=== PATIENT | male | born 1960 | race Caucasian/White ===

== ENCOUNTER 2024-04-12 10:56 | Inpatient (IN) | payer MEDICARE, MEDICAID, SELFPAY ==
[2024-04-12 11:04] VITALS: BP 185/80; PULSE 89; RESP 16; TEMP 36.8; O2SAT 96; BMI 25.9
--- NOTE | 2024-04-12 11:04 | ED.C_ITS ---
Documented by User: [email or web address] Palacios 04/12/24 12:16 HPI - Psych 2 General: Chief Complaint: Psychiatric Symptoms Stated Complaint: 96 Time Seen by Provider: 04/12/24 11:04 Source: patient Mode of arrival: EMS Limitations: no limitations History of Present Illness: Patient is a 63-year-old male presents to ED today on a 96-hour hold. According to hold paperwork patient has been sending his friend text messages stating that he was going to go kill himself that he is going to end it all or going to go be with Terrence . His friend to file the affidavit states he has been threatening bodily harm and when he went to the patient's residence he found a loaded gun cocked and lying by his feet. According to the affidavit patient has made statements that he feels like nobody cares. According to the friend, when he told to the patient he was not going to give his gun back, the patient then responded that he would use a knife to end it all. Patient upon arrival is denying all claims and states I do not know what you are talking about . MD complaint: suicidal ideation Associated symptoms: Deny auditory hallucinations, visual hallucinations, depression, homicidal ideation or suicidal ideation Treatments prior to arrival: placed on mental health hold If self harm: admits thoughts of self harm, has plan and has acted on plan Review of Systems 2 Const: Denies: fever(s) or chills Card: Denies: chest pain, palpitations, lightheadedness or syncope Resp: Denies: dyspnea GI: Denies: abdominal pain, nausea, vomiting or diarrhea Skin/Breast: Denies: rash Neuro: Denies: headache(s) Psych: Denies: anxiety, depression, visual hallucinations, auditory hallucinations, suicidal ideation or homicidal ideation Physical Exam 2 Const: COMMON NORMALS: no acute distress, average body habitus, patient oriented x3, no limitations, healthy appearing, alert and well nourished G ENERAL APPEARANCE: cooperative ORIENTATION/CONSCIOUSNESS: Yes oriented to person, Yes oriented to place and Yes oriented to time Resp: COMMON NORMALS: normal respiratory effort and clear to auscultation bilaterally AUSCULTATION: clear to auscultation bilaterally Cardio: COMMON NORMALS: regular rate and regular rhythm RATE: regular rate RHYTHM: regular rhythm Neuro: COMMON NORMALS: patient oriented x3 SENSORIUM/ORIENTATION: Yes alert, Yes oriented to person, Yes oriented to place and Yes oriented to time Psych: COMMON NORMALS: mental status grossly normal, activity/motor behavior normal, denies hallucinations, denies homicidal ideation and denies suicidal ideation APPEARANCE: Yes grossly normal ATTITUDE: Yes calm A CTIVITY/MOTOR BEHAVIOR: Yes appropriate eye contact and No psychomotor agitation SPEECH: Yes delayed MOOD & AFFECT: Yes euthymic mood MEMORY/COGNITION: Yes memory grossly intact and Yes cognition grossly intact INSIGHT: Fair insight present (Psych) JUDGEMENT: Fair judgement present (Psych) Course 2 Consultations: Consultation #1: Dr. Adorno-accepts to NPU Vital Signs: Vital signs: Vital Signs Temperature 98.3 F 04/12/24 11:04 Pulse Rate 89 04/12/24 14:58 Respiratory Rate 16 04/12/24 14:58 Blood Pressure 185/80 04/12/24 14:58 Pulse Oximetry 96 04/12/24 14:58 Oxygen Delivery Me thod Room Air 04/12/24 15:04 [facility] - Psych Medical Decision Making Patient will be admitted to NPU to Dr. Adorno on a 96-hour hold for treatment/evaluation of suicidal ideations. Lab Data 04/12/24 11:16 04/12/24 11:16 Laboratory Results WBC 9.38 10^3/uL (3.29-11.43) 04/12/24 11:16 RBC 4.48 10^6/uL (3.85-5.65) 04/12/24 11:16 Hgb 14.10 g/dL (11.27-16.99) 04/12/24 11:16 Hct 43.5 % (37-53) 04/12/24 11:16 MCV 97.1 fl (82-101) 04/12/24 11:16 MCH 31.5 pg (27-33) 04/12/24 11:16 MCHC 32.4 g/dL (30-55) 04/12/24 11:16 RDW 13.4 % (12.1-15.1) 04/12/24 11:16 Plt Count 270 10^3/cmm (157-399) 04/12/24 11:16 MPV 9.6 fL (7.4-10.4) 04/12/24 11:16 Neut % (Auto) 71.3 % 04/12/24 11:16 Lymph % (Auto) 12.5 % 04/12/24 11:16 Mckean % (Auto) 14.2 % 04/12/24 11:16 Eos % (Auto) 1.2 % 04/12/24 11:16 Baso % (Auto) 0.4 % 04/12/24 11:16 Neut # (Auto) 6.69 10^3/uL (1.8-7.7) 04/12/24 11:16 Lymph # (Auto) 1.2 10^3/uL (0.8-4.8) 04/12/24 11:16 Mckean # (Auto) 1.3 10^3/uL (0.2-0.9) H 04/12/24 11:16 Eos # (Auto) 0.1 10^3/uL (0.0-0.8) 04/12/24 11:16 Baso # (Auto) 0.0 10^3/uL (0.0-0.1) 04/12/24 11:16 Nucleated RBC % (auto) 0 % 04/12/24 11:16 Nucleated RBCs # 0.0 /100WBC 04/12/24 11:16 Sodium 136 mmol/L (136-145) 04/12/24 11:16 Potassium 3.7 mmol/L (3.5-5.1) 04/12/24 11:16 Chloride 100 mmol/L (98-107) 04/12/24 11:16 Carbon Dioxide 23 mmol/L (22-29) 04/12/24 11:16 Anion Gap 16.7 (5-19) 04/12/24 11:16 BUN 13 mg/dL (8-23) 04/12/24 11:16 Creatinine 0.9 mg/dL (0.7-1.2) 04/12/24 11:16 GFR Calculation 85.5 mL/min (90-130) L 04/12/24 11:16 Glucose 101 mg/dL (65-115) 04/12/24 11:16 Calculated Osmolality 282 mOsm/kg (285-295) L 04/12/24 11:16 Calcium 9.0 mg/dL (8.5-10.5) 04/12/24 11:16 Total Bilirubin 0.4 mg/dL (0.15-1.2) 04/12/24 11:16 AST 29 U/L (0-40) 04/12/24 11:16 ALT 18 U/L (0-41) 04/12/24 11:16 Alkaline Phosphatase 79 U/L (40-130) 04/12/24 11:16 Total Protein 7.7 g/dL (6.6-8.7) 04/12/24 11:16 Albumin 4.0 g/dL (3.5-5.2) 04/12/24 11:16 Globulin 3.7 g/dL (1.3-4.6) 04/12/24 11:16 Salicylates 0.6 mg/dL (3-10) L 04/12/24 11:16 Urine Opiates Screen Negative ng/mL (Negative) 04/12/24 11:08 Acetaminophen < 5.0 ug/mL (10-30) L 04/12/24 11:16 Ur Barbiturates Screen Negative ng/mL (Negative) 04/12/24 11:08 Ur Phencyclidine Scrn Negative ng/mL (Negative) 04/12/24 11:08 Ur Amphetamines Screen Negative ng/mL (Negative) 04/12/24 11:08 U Benzodiazepines Scrn Negative ng/mL (Negative) 04/12/24 11:08 Urine Cocaine Screen Negative ng/mL (Negative) 04/12/24 11:08 U Marijuana (THC) Screen Negative ng/mL (Negative) 04/12/24 11:08 Ethyl Alcohol < 10 mg/dL (0-10) 04/12/24 11:16 No radiology studies performed this visit Discharge Plan Discharge Patient Disposition: Admitted As Inpatient Admit Provider: Morris Adorno Clinical Impression: Suicidal ideation Condition: Stable Coding Level of Care Code ED Admin Assistant for Chg Fwd Documented by User: Bryson Zavaleta DO 04/12/24 16:28 HPI - Psych 2 General: Chief Complaint: Psychiatric Symptoms Stated Complaint: 96 Time Seen by Provider: 04/12/24 11:04 Course 2 Vital Signs: Vital signs: Vital Signs Temperature 98.3 F 04/12/24 11:04 Pulse Rate 89 04/12/24 14:58 Respiratory Rate 16 04/12/24 14:58 Blood Pressure 185/80 04/12/24 14:58 Pulse Oximetry 96 04/12/24 14:58 Oxygen Delivery Me thod Room Air 04/12/24 15:04 MDM - Psych Medical Decision Making Patient will be admitted to NPU to Dr. Adorno on a 96-hour hold for treatment/evaluation of suicidal ideations. Chart reviewed and patient discussed with midlevel. Agree with assessment and plan. Lab Data 04/12/24 11:16 04/12/24 11:16 Laboratory Results WBC 9.38 10^3/uL (3.29-11.43) 04/12/24 11:16 RBC 4.48 10^6/uL (3.85-5.65) 04/12/24 11:16 Hgb 14.10 g/dL (11.27-16.99) 04/12/24 11:16 Hct 43.5 % (37-53) 04/12/24 11:16 MCV 97.1 fl (82-101) 04/12/24 11:16 MCH 31.5 pg (27-33) 04/12/24 11:16 MCHC 32.4 g/dL (30-55) 04/12/24 11:16 RDW 13.4 % (12.1-15.1) 04/12/24 11:16 Plt Count 270 10^3/cmm (157-399) 04/12/24 11:16 MPV 9.6 fL (7.4-10.4) 04/12/24 11:16 Neut % (Auto) 71.3 % 04/12/24 11:16 Lymph % (Auto) 12.5 % 04/12/24 11:16 Mckean % (Auto) 14.2 % 04/12/24 11:16 Eos % (Auto) 1.2 % 04/12/24 11:16 Baso % (Auto) 0.4 % 04/12/24 11:16 Neut # (Auto) 6.69 10^3/uL (1.8-7.7) 04/12/24 11:16 Lymph # (Auto) 1.2 10^3/uL (0.8-4.8) 04/12/24 11:16 Mckean # (Auto) 1.3 10^3/uL (0.2-0.9) H 04/12/24 11:16 Eos # (Auto) 0.1 10^3/uL (0.0-0.8) 04/12/24 11:16 Baso # (Auto) 0.0 10^3/uL (0.0-0.1) 04/12/24 11:16 Nucleated RBC % (auto) 0 % 04/12/24 11:16 Nucleated RBCs # 0.0 /100WBC 04/12/24 11:16 Sodium 136 mmol/L (136-145) 04/12/24 11:16 Potassium 3.7 mmol/L (3.5-5.1) 04/12/24 11:16 Chloride 100 mmol/L (98-107) 04/12/24 11:16 Carbon Dioxide 23 mmol/L (22-29) 04/12/24 11:16 Anion Gap 16.7 (5-19) 04/12/24 11:16 BUN 13 mg/dL (8-23) 04/12/24 11:16 Creatinine 0.9 mg/dL (0.7-1.2) 04/12/24 11:16 GFR Calculation 85.5 mL/min (90-130) L 04/12/24 11:16 Glucose 101 mg/dL (65-115) 04/12/24 11:16 Calculated Osmolality 282 mOsm/kg (285-295) L 04/12/24 11:16 Calcium 9.0 mg/dL (8.5-10.5) 04/12/24 11:16 Total Bilirubin 0.4 mg/dL (0.15-1.2) 04/12/24 11:16 AST 29 U/L (0-40) 04/12/24 11:16 ALT 18 U/L (0-41) 04/12/24 11:16 Alkaline Phosphatase 79 U/L (40-130) 04/12/24 11:16 Total Protein 7.7 g/dL (6.6-8.7) 04/12/24 11:16 Albumin 4.0 g/dL (3.5-5.2) 04/12/24 11:16 Globulin 3.7 g/dL (1.3-4.6) 04/12/24 11:16 Salicylates 0.6 mg/dL (3-10) L 04/12/24 11:16 Urine Opiates Screen Negative ng/mL (Negative) 04/12/24 11:08 Acetaminophen < 5.0 ug/mL (10-30) L 04/12/24 11:16 Ur Barbiturates Screen Negative ng/mL (Negative) 04/12/24 11:08 Ur Phencyclidine Scrn Negative ng/mL (Negative) 04/12/24 11:08 Ur Amphetamines Screen Negative ng/mL (Negative) 04/12/24 11:08 U Benzodiazepines Scrn Negative ng/mL (Negative) 04/12/24 11:08 Urine Cocaine Screen Negative ng/mL (Negative) 04/12/24 11:08 U Marijuana (THC) Screen Negative ng/mL (Negative) 04/12/24 11:08 Ethyl Alcohol < 10 mg/dL (0-10) 04/12/24 11:16 Discharge Plan Discharge Patient Disposition: Admitted As Inpatient Admit Provider: Morris Adorno Clinical Impression: Suicidal ideation Condition: Stable Coding Level of Care Code ED Admin Assistant for Aminah Lynn
[2024-04-12 11:21] VITALS: BP 185/80; PULSE 89; RESP 16; O2SAT 96
[2024-04-12 11:23] LABS: Basophils % 0.4 %; Eosinophils # 0.1 10^3/uL (0.0-0.8); Eosinophils % 1.2 %; Hematocrit 43.5 % (37-53); Lymphocytes # 1.2 10^3/uL (0.8-4.8); Lymphocytes % 12.5 %; Mean Corpuscular HGB Conc 32.4 g/dL (30-55); Mean Corpuscular Hemoglobin 31.5 pg (27-33); Mean Corpuscular Volume 97.1 fl (82-101); Mean Platelet Volume 9.6 fL (7.4-10.4); Monocytes # 1.3 10^3/uL (0.2-0.9); Monocytes % 14.2 %; Neutrophils # 6.69 10^3/uL (1.8-7.7); Neutrophils % 71.3 %; Nucleated Red Blood Cells % 0 %; Platelet Count 270 10^3/cmm (157-399); Red Blood Count 4.48 10^6/uL (3.85-5.65); Red Cell Distribution Width 13.4 % (12.1-15.1); White Blood Count 9.38 10^3/uL (3.29-11.43)
[2024-04-12 11:42] LABS: Amphetamines Screen Urine Negative (Negative); Barbiturates Screen Urine Negative (Negative); Benzodiazepines Screen Urine Negative (Negative); Cocaine Screen Urine Negative (Negative); Opiate Screen Urine Negative (Negative); PCP Screen Urine Negative (Negative); THC Screen Urine Negative (Negative)
--- NOTE | 2024-04-12 11:47 | PC.PHAR ---
PT STATES TOOK ALLERGY PILL TODAY. NO OTHER RESPONSE TO ANY OF MY QUESTIONS. USED DEEPTI DE ANDA FOR REFERENCE TO MEDICATIONS PT CURRENTLY SHOULD BE TAKING.
[2024-04-12 11:50] LABS: Alanine Aminotransferase 18 U/L (0-41); Alkaline Phosphatase 79 U/L (40-130); Anion Gap 16.7 (5-19); Aspartate Amino Transferase 29 U/L (0-40); Blood Urea Nitrogen 13 mg/dL (8-23); Carbon Dioxide 23 mmol/L (22-29); Chloride 100 mmol/L (98-107); Creatinine Clr Calc Pharmacy 83.9925; Globulin 3.7 g/dL (1.3-4.6); Glomerular Filtration Rate 85.5 mL/min (90-130); Glucose 101 mg/dL (65-115); Osmolality Calculated 282 mOsm/kg (285-295); Potassium 3.7 mmol/L (3.5-5.1); Salicylate 0.6 mg/dL (3-10); Sodium 136 mmol/L (136-145); Total Bilirubin 0.4 mg/dL (0.15-1.2); Total Protein 7.7 g/dL (6.6-8.7)
[2024-04-12 12:13] LABS: Acetaminophen < 5.0 ug/mL (10-30); Alcohol Level < 10 mg/dL (0-10)
--- NOTE | 2024-04-12 12:29 | PC.NURSE ---
PATIENT IS AGGRESSIVE WITH 1:1 SITTER. PATIENT STATES THAT HE DOESN'T LIKE HER BECAUSE SHE REMINDS ME OF MY EX-SISTER IN LAW. PATIENT CONTINUES TO USE VULGAR LANGUAGE AND MIDDLE FINGERS TO SITTER. NURSE EDUCATES PATIENT THAT 1:1 SITTER HAS A JOB THAT MUST BE DONE. PATIENT BACK TO BED.
--- NOTE | 2024-04-12 13:17 | PC.NURSE ---
96 hr rights reviewed with pt with assistance of [facility] security Hector officer @[id number]. Pt agitated at time of rights being served. He verbalized understandment of rights, but also verbalizes distaste for decision and with the PSA who is currently sitting with him. Pt states she reminds him of his ex sister in law, and continues to flip her off and yell at her. HS and Security spoke with patient and gave education on need to stay inside of room at this time. Patient copy left with patient. Patient continues to verbalize colorful names towards [facility] staff. Patient currently in ER 9. Patient copy left @bedside with the patient.
[2024-04-12 14:58] VITALS: BP 185/80; PULSE 89; RESP 16; O2SAT 96
[2024-04-12 15:04] VITALS: BP 112/75; PULSE 86; RESP 20; TEMP 36.4; O2SAT 99
--- NOTE | 2024-04-12 16:12 | PC.NURSE ---
counted pt christy infront of patient-christy count =$1906.00, christy placed in security christy folder,sealed with tape, pt, lina Bardales, this test fixture designer signed security christy folder after it was sealed. security christy folder given to Security [place] to take to security office safe until pt ready for discharge. orginal document placed in pt chart.
--- NOTE | 2024-04-12 16:43 | PC.ADMIT ---
[id number] Wilian Abdi Admission Note: The patient,Jerrod Yost,63 y/o, was given written information regarding hospital policies, unit procedures and contact persons. Patient's smoking status: . Vital Signs - 8 hr 04/12/24 11:04 04/12/24 11:21 04/12/24 14:58 Temperature 98.3 F Pulse Rate 89 89 89 Respiratory Rate 16 16 16 Blood Pressure 185/80 185/80 185/80 Pulse Oximetry 96 96 96 Oxygen Delivery Method Room Air Room Air 04/12/24 15:04 Temperature Pulse Rate Respiratory Rate Blood Pressure Pulse Oximetry Oxygen Delivery Method Room Air ADMITTED VIA WHEELCHAIR AND SECURITY AT 1505. PT IS ON A 96 HOUR HOLD THAT ENDS ON 04/18/24 AT 1218. PT IS ANXIOUS UPON ARRIVAL, MEDICATIONS OFFERED BUT DECLINES. PT STATES HE IS HERE DUE I DON'T REALLY REMEMBER. I MAYBE TEXTED MY FRIEND WHEN I WAS DRUNK THAT I WANTED TO KILL MYSELF. PT DENIES HI AND AVH AT THIS TIME. DENIES PAIN. PT REPORTS THAT HE DRINKS A FIFTH OF VODKA A WEEK AND HAS BEEN DRINKING SINCE AGE 13. PT REPORTS HE STOPPED SMOKING IN 2007 AND DOES HAVE COPD. PT DENIES ANY PSYCHIATRIC DIAGNOSES AT THIS TIME AND STATES HE TAKES NO PSYCHIATRIC MEDICATIONS AT THIS TIME. PT IS ALERT AND ORIENTED TIMES 4 AND CAN MAKE HIS NEEDS KNOWN. PT WAS DRESSED OUT AND SKIN ASSESSMENT COMPLETED AND REVEALS GENERALIZED TICK BITES TO LEGS AND ARMS. PT STATES HE GETS TICK BITES IN THE [place] AT HOME. PT WAS ORIENTATED TO NPU, RULES AND GUIDELINES. ALL QUESTIONS ANSWERED AND SUPPORT WAS VOICED. INSULATION ENGINEMAN ALERTED THIS RN THAT PT HAD MULTIPLE BILLS IN HIS WALLET. ALL MONEY WAS COUNTED WITH LEOBARDO PEDROZA AND YAZAN CASAS IN THE AMOUNT OF $1905.00. THIS RN CONTACTED SECURITY TO TAKE THE ENVELOPE OF MONEY AND TO KEEP IT IN THE SECURITY OFFICE. ALL MONEY WAS GIVEN TO JESSICA FROM SECURITY TO KEEP UNTIL THE PT DISCHARGES. PT SIGNED OFF ON MONEY AND WATCHED STAFF (LEOBARDO AND YAZAN) COUNT MONEY, PLACE AND SEAL IN ENVELOPE.
--- NOTE | 2024-04-12 17:04 | PC.NURSE ---
CALLED DR. TOVAR TO GET ORDERS TO START HOME MEDIATIONS. DR. TOVAR GAVE ORDERS TO START ALBUTEROL 2 PUFFS PRN SOB/ARIPIPAZOLE 5 MG Q DAY, FLUOXETINE 40 MG QDAY,TRELEGY DIRECTED, LEVOCETIRIZINE 5 MG Q PM, MONTELUKAST 10 MG Q DAY, OMEPRAZOLE 20 MG PO Q DAY/ORDERS RECEIVED FOR RESPIRATORY ASSESS AND TREAT TO HAVE PT ASSESSED FOR INHALERS OR BREATHING TREATMENTS IF NEEDED. PT EDUCATED ON NEW ORDERS AND VERBALIZED UNDERSTANDING,
[2024-04-12 22:00] VITALS: BP 159/83; PULSE 70; RESP 16; O2SAT 98
[2024-04-13] VITALS (8 sets, daily range): BP systolic 129–146; BP diastolic 60–82; PULSE 74–90; RESP 16–20; TEMP 36.4–36.7; O2SAT 95–97
[2024-04-13] MEDS: acetaminophen 325 mg Tablet 650 MG PO (08:10)
[2024-04-13] MEDS: ARIPiprazole 10 mg Tablet 5 MG PO (08:12)
[2024-04-13] MEDS: ipratropium-albuterol 3 mL Neb INHALATION ×3 (08:19→15:30)
[2024-04-13] MEDS: budesonide 0.5 mg/2 mL Neb INHALATION (08:19)
[2024-04-13] MEDS: fluoxetine 20 mg Capsule 40 MG PO (08:22)
[2024-04-13] MEDS: montelukast sodium 10 mg Tablet PO (08:23)
[2024-04-13] MEDS: pantoprazole DR 40 mg Tablet PO (08:23)
--- NOTE | 2024-04-13 09:44 | PC.NURSE ---
Patient irritable this morning, initially refusing to take his medications. An OIL EXTRACTOR calmly explained what each of his medications were used for in front of this RN and why they would be beneficial to him. Patient later told this RN that the other nurse didn't have to be such a bitch. This RN reiterated why medication compliance was important. He denied hi/si and avh this morning.
[2024-04-13] MEDS: ibuprofen 600 mg Tablet PO (11:50)
--- NOTE | 2024-04-13 11:51 | PC.NURSE ---
Patient requesting tylenol. Patient informed it was too early to take another dose of tylenol, but that he could take ibuprofen. He agreed to this. When asked what his pain was he stated it was a 7 and then angrily asked, do we have to go through this every time? Staff replied that we did in order to chart it and keep track of his pain. He then raised his voice and said, that's just ridiculous!
--- NOTE | 2024-04-13 12:11 | PC.NURSE ---
Room searched for contraband. Chips confiscated.
--- NOTE | 2024-04-13 13:42 | W.PM.NPUH&PS ---
Providers/Chief Complaint Admitting Physician: Morris Adorno MD Chief Complaint: 96 HPI NPU History of Present Illness Jerrod Yost is a 63 year old male who presented to the emergency department at [facility] on a 96-hour hold. The patient was admitted to the neuropsychiatric unit for further evaluation and treatment. The patient stated that he was doing pretty well yesterday when the police stopped him in his hometown of [place] while he was driving. They had reported to him that they had been looking for him for several days and they had picked him up and sent him to be evaluated as they had reported to him that he had been threatening harm to himself according to a friend who had filed an affidavit. The patient had acknowledged that he had sent his friend text messages stating that he was going to end it all and reported that he had a locked and loaded gun that he uses to protect himself at home. He had reported that his friend that had filed the affidavit had taken his gun and had been responsible for cleaning his gun for several years. The patient denies having any current thoughts of hurting himself or others. He had stated that he had had periods of depression in the recent past but states that he has not been feeling depressed over the last few weeks. He had reported that he may have made those statements threatening bodily harm at least 2 weeks ago. The patient had reported that he had lost a job 2 months ago that he had had for nearly 5 years working voluntarily at [employer]. He had reported that he was having a difficult time with managing his loss of a job as he had stated that he had gained a good deal of friends and it had been a source of some happiness for him. He reported that he had been frustrated about this job loss. He reports no anhedonia. He denies any sleep disturbance. He reports that he has been frequently bored. He reports no change in memory or concentration. He denies any auditory or visual hallucinations. He reports that he has few friends. He reports some feelings of loneliness. He reports increased social isolation. He had reported that he had been on disability for spina bifida for many years of his life. He denies any illicit drug use but reports that he has been drinking approximately 3 drinks a day on average daily for more than 40 years. He reports no history of alcohol-related with drawl symptoms. He was unable to report the longest period of abstinence from alcohol. He had reported compliance with his current medication regimen. He denies any history of psychosis. Inpatient psychiatric history: He reports having been hospitalized 4-5 times in the past for depression and suicidal statements with his last hospitalization having occurred in 2018 in [facility]. Outpatient psychiatric history: He had reported prior to 2019 having received outpatient psychotherapy and medication management through [facility] in [facility]. Medical history: Spina bifida, COPD, seasonal allergies Surgical history: None Drug and alcohol history: No illicit drug use, patient denies any history of inpatient or outpatient substance abuse treatment. He had endorsed chronic alcohol use beginning in adolescence with no history of reported alcohol-related withdrawals. Allergies: No known drug allergies Legal history: None Current medications: Abilify 5 mg daily, Prozac 20 mg daily, Trelegy 1 inhalation daily, Zyrtec 5 mg daily, montelukast 10 mg daily, omeprazole 20 mg daily ,albuterol inhaler Family psychiatric history: Alcoholism maternal and paternal side of the family. Psychosocial history: Patient had reported having been diagnosed with a learning disorder during his childhood. He had received a regular diploma and was raised by his biological parents in [place]. He had reported being chronically disabled by spina bifida and had been on disability for more than 30 years. 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 He lives alone in land inherited from his family in [place]. He has 1 older sister who he has occasional contact with. He has never been and has no children. His father greater than 20 years ago and his mother in 2016 both of cancer. He had reported no legal problems. He currently drives and is on full disability. He reports living independently. He had previously smoked cigarettes and quit in 2007. He reports he is a Yazidism and goes to islam every Monday. Meds NPU Home Medications Medication Instructions Recorded Confirmed Last Taken Type albuterol sulfate 90 mcg/actuation 2 puff inhalation Q6H PRN 04/12/24 04/12/24 Unknown History aerosol inhaler Shortness Of Breath Or Wheezing aripiprazole 5 mg tablet 5 mg PO DAILY 04/12/24 04/12/24 Unknown History fluoxetine 40 mg capsule 40 mg PO DAILY 04/12/24 04/12/24 Unknown History fluticasone fur. 100 mcg-umeclid 1 inh inhalation DAILY 04/12/24 04/12/24 Unknown History 62.5 mcg-vilant 25 mcg inhalat.powder (Trelegy Ellipta) levocetirizine 5 mg tablet 5 mg PO QPM 04/12/24 04/12/24 04/12/24 History montelukast 10 mg tablet 10 mg PO DAILY 04/12/24 04/12/24 Unknown History omeprazole 20 mg capsule,delayed 20 mg PO DAILY 04/12/24 04/12/24 Unknown History release Allergies Allergy/AdvReac Type Severity Reaction Status Date / Time No Known Allergies Allergy Verified 04/12/24 11:14 Mental Status Exam MSE Comments: Patient is a pleasant white male with fair hygiene and a normal gait with no evidence of any abnormal involuntary motor movements tics or tremors appreciated. He was alert and oriented x 3. His speech was normal in regards to rate rhythm and prosody. His mood was described as okay. His affect was slightly restricted in range and mood incongruent. There was no evidence of any psychomotor agitation and mild psychomotor retardation was appreciated. His thought process was linear logical and goal-directed. His thought content showed no evidence of active homicidal or suicidal ideation although he had acknowledged having made suicidal statements in the recent past. His attention span appeared fair. His recent and remote memory were grossly intact. There was no evidence of any delusional thinking. He did not appear to be responding to internal stimuli. His insight appeared limited. His judgment was guarded at this time. His impulse control appeared guarded as well. Vitals/I&O/Wt Last Vital Signs Temp 97.5 F L 04/12/24 15:04 Pulse 84 04/13/24 11:46 Resp 16 04/13/24 11:43 BP 146/60 04/13/24 06:00 Pulse Ox 97 04/13/24 11:43 O2 Del Method Room Air 04/13/24 11:43 Weight last 48 hrs Weight 75.296 kg Data NPU 04/12/24 11:16 04/12/24 11:16 A&P Assessment and plan (1) Depression, unspecified: (2) Suicidal ideation: (3) Alcohol abuse: Plan 63-year-old male with a history of chronic alcohol use admitted with suicidal ideation currently on an involuntary basis with limited social supports at this time. #1.? Engage patient in individual milieu and group therapy. #2?? Recommend sober living treatment at the highest level of care to which the patient is willing to commit #3??? CIWA for alcohol withdrawal #4?? TO-15 minute checks? #5?? Will attempt to gather collateral information and restart outpatient medications including prozac and abilify. Involuntary Hold Information 96 Hour Hold: 96 Hour Involuntary Admission: Yes 96 Hour Hold Ending Date: 04/18/24 96 Hour Hold Ending Time: 12:18 Attestations NPU Medical Necessity Statement*: Inpatient hospitalization is medically necessary and deemed to ?be ?the clinically appropriate intervention ?at this time.? We will monitor/initiate medications and make changes as indicated.? The patient will be in the hospital for over 2 midnights.? The patient?s likely length of stay 3-5 days. Coding Level of Care Code Acute Code for Chg Fwd Diagnoses Depression, unspecified F32.A Suicidal ideation R45.851 Alcohol abuse F10.10
[2024-04-14] MEDS: ibuprofen 600 mg Tablet PO ×2 (01:54→09:07)
[2024-04-14 06:00] VITALS: BP 169/84; PULSE 91; RESP 17; O2SAT 96
[2024-04-14] MEDS: cetirizine 10 mg Tablet 5 MG PO (09:06)
[2024-04-14] MEDS: pantoprazole DR 40 mg Tablet PO (09:06)
[2024-04-14] MEDS: ARIPiprazole 10 mg Tablet 5 MG PO (09:06)
[2024-04-14] MEDS: montelukast sodium 10 mg Tablet PO (09:06)
[2024-04-14] MEDS: fluoxetine 20 mg Capsule 40 MG PO (09:07)
[2024-04-14] MEDS: ipratropium-albuterol 3 mL Neb INHALATION ×2 (11:22→16:46)
[2024-04-14 11:24] VITALS: PULSE 76; RESP 22; O2SAT 92
[2024-04-14 11:30] VITALS: PULSE 76
--- NOTE | 2024-04-14 12:30 | PC.NURSE ---
Patient room searched for contraband. None found.
[2024-04-14 14:00] VITALS: BP 132/71; PULSE 83; RESP 20; TEMP 36.6; O2SAT 95
[2024-04-14] MEDS: CELEcoxib 100 mg Capsule PO (14:22)
[2024-04-14 16:47] VITALS: PULSE 81; RESP 20; O2SAT 96
--- NOTE | 2024-04-14 18:22 | P.NPUPN_ITS ---
Subjective NPU 2 Subjective: 63-year-old male admitted involuntarily with suicidal ideation after making threats to harm himself. The patient had been compliant on the milieu. He had reported that he had been taking his medications as prescribed on an outpatient basis. He had continued to minimize any thoughts of hurting himself at this time. He had reported some recent sadness the last few months with the loss of his job of 5 years. He had reported some significant pain in his back. He had reported no side effects from his medications. He had minimized any problems associated with daily alcohol consumption 3-5 drinks a day for more than 20 years. Mental Status Exam 2 MSE Comments: Patient is a pleasant white male with fair hygiene and a normal gait with no evidence of any abnormal involuntary motor movements tics or tremors appreciated. He was alert and oriented x 3. His speech was slow in regards to rate , normal rhythm and volume. His mood was described as fine. His affect was slightly restricted in range and mood incongruent. There was no evidence of any psychomotor agitation and mild psychomotor retardation was appreciated. His thought process was linear logical and goal-directed. His thought content showed no evidence of active homicidal or suicidal ideation today. His attention span appeared fair. His recent and remote memory were grossly intact. There was no evidence of any delusional thinking. He did not appear to be responding to internal stimuli. His insight appeared limited. His judgment was guarded at this time. His impulse control appeared guarded as well. Vitals/I&O/Wt Last Vital Signs Temp 98 F 04/14/24 14:00 Pulse 81 04/14/24 16:47 Resp 20 H 04/14/24 16:47 BP 132/71 04/14/24 14:00 Pulse Ox 96 04/14/24 16:47 O2 Del Method Room Air 04/14/24 16:47 Weight last 48 hrs Weight 73.142 kg Data NPU 04/12/24 11:16 04/12/24 11:16 A&P Assessment and plan (1) Depression, unspecified: (2) Suicidal ideation: (3) Alcohol abuse: Plan 63-year-old male with a history of chronic alcohol use admitted with suicidal ideation currently on an involuntary basis with limited social supports at this time. #1.? Engage patient in individual milieu and group therapy. #2?? Recommend sober living treatment at the highest level of care to which the patient is willing to commit #3??? CIWA for alcohol withdrawal #4?? TO-15 minute checks? #5?? Increase prozac 40mg in am , and abilify 5mg daily. Involuntary Hold Information 2 96 Hour Hold: 96 Hour Involuntary Admission: Yes 96 Hour Hold Ending Date: 04/18/24 96 Hour Hold Ending Time: 12:18 Attestations NPU 2 Medical Necessity Statement*: Inpatient hospitalization is medically necessary and deemed to ?be ?the clinically appropriate intervention ?at this time.? We will monitor/initiate medications and make changes as indicated.? The patient?s likely length of stay 2-3 days. Coding Level of Care Code Acute Code for Chg Fwd Diagnoses Depression, unspecified F32.A Suicidal ideation R45.851 Alcohol abuse F10.10
[2024-04-14 19:58] VITALS: BP 131/71; PULSE 82; RESP 18; O2SAT 97
[2024-04-15 06:00] VITALS: RESP 16
[2024-04-15] MEDS: ARIPiprazole 10 mg Tablet 5 MG PO (08:08)
[2024-04-15] MEDS: montelukast sodium 10 mg Tablet PO (08:08)
[2024-04-15] MEDS: CELEcoxib 100 mg Capsule PO (08:08)
[2024-04-15] MEDS: pantoprazole DR 40 mg Tablet PO (08:08)
[2024-04-15] MEDS: cetirizine 10 mg Tablet 5 MG PO (08:08)
[2024-04-15] MEDS: hyDROXYzine 25 mg Capsule 50 MG PO (08:08)
[2024-04-15] MEDS: acetaminophen 325 mg Tablet 650 MG PO ×2 (08:09→13:50)
[2024-04-15] MEDS: fluoxetine 20 mg Capsule 40 MG PO (08:09)
--- NOTE | 2024-04-15 08:34 | PC.NURSE ---
IN DAY ROOM WATCHING TV. DENIES SI/HI AND AVH AT THIS TIME. RATES PAIN 8/10 I BACK, TYLENOL 650 MG GIVEN ORDERED FOR PAIN. PT RATES ANXIETY AND DEPRESSION 0/10 BUT PT IS OBSERVED HAVING SOME ANXIETY AND INTRUSIVE AT TIMES. VISTARIL 50 MG GIVEN ORDERED FOR ANXIETY. ALL QUESTIONS ANSWERED AND SUPPORT WAS VOICED. PT NOTED TO HAVE FLAT AFFECT.
[2024-04-15 11:34] VITALS: PULSE 87; RESP 18; O2SAT 94
[2024-04-15] MEDS: ipratropium-albuterol 3 mL Neb INHALATION (11:34)
[2024-04-15 12:12] VITALS: BP 140/67; PULSE 84; RESP 18; TEMP 36.8; O2SAT 96
[2024-04-15 16:04] VITALS: BP 140/67; PULSE 84; RESP 18; TEMP 36.8; O2SAT 96
--- NOTE | 2024-04-15 16:32 | DCPLANNER ---
IMM was printed and given to pt and rights explained and placed in pts file.
--- NOTE | 2024-04-15 16:41 | PC.NURSE ---
PT WAS DISCHARGED AT 1642. PT HAD $1906.00 IN CRATWRIGHT IN ENVELOPE THAT HE CAME INTO THE NPU WITH. MONEY WAS SENT TO SECURITY. AT DISCHARGE PT WAS GIVEN HIS ENVELOPE AND COUNTED $1906.00 OUT WITH THIS RN PRESENT. PT SIGNED ENVELOPE STATING ALL MONEY WAS ACCOUNTED FOR AND RETURNED BACK TO THE PT UPON DISCHARGE. SUPPORT VOICED.
--- NOTE | 2024-04-15 18:02 | P.NPUDS_ITS ---
Diagnoses at Discharge Discharge Diagnosis (1) Depression, unspecified: Status: Acute (2) Suicidal ideation: Status: Acute (3) Alcohol abuse: Status: Acute Reason for Visit Reason for Visit: suicidal ideation. Brief History: History of Present Illness Jerrod Yost is a 63 year old male who presented to the emergency department at [facility] on a 96-hour hold. The patient was admitted to the neuropsychiatric unit for further evaluation and treatment. The patient stated that he was doing pretty well yesterday when the police stopped him in his hometown of [place] while he was driving. They had reported to him that they had been looking for him for several days and they had picked him up and sent him to be evaluated as they had reported to him that he had been threatening harm to himself according to a friend who had filed an affidavit. The patient had acknowledged that he had sent his friend text messages stating that he was going to end it all and reported that he had a locked and loaded gun that he uses to protect himself at home. He had reported that his friend that had filed the affidavit had taken his gun and had been responsible for cleaning his gun for several years. The patient denies having any current thoughts of hurting himself or others. He had stated that he had had periods of depression in the recent past but states that he has not been feeling depressed over the last few weeks. He had reported that he may have made those statements threatening bodily harm at least 2 weeks ago. The patient had reported that he had lost a job 2 months ago that he had had for nearly 5 years working voluntarily at [employer]. He had reported that he was having a difficult time with managing his loss of a job as he had stated that he had gained a good deal of friends and it had been a source of some happiness for him. He reported that he had been frustrated about this job loss. He reports no anhedonia. He denies any sleep disturbance. He reports that he has been frequently bored. He reports no change in memory or concentration. He denies any auditory or visual hallucinations. He reports that he has few friends. He reports some feelings of loneliness. He reports increased social isolation. He had reported that he had been on disability for spina bifida for many years of his life. He denies any illicit drug use but reports that he has been drinking approximately 3 drinks a day on average daily for more than 40 years. He reports no history of alcohol-related with drawl symptoms. He was unable to report the longest period of abstinence from alcohol. He had reported compliance with his current medication regimen. He denies any history of psychosis. Inpatient psychiatric history: He reports having been hospitalized 4-5 times in the past for depression and suicidal statements with his last hospitalization having occurred in 2018 in [facility]. Outpatient psychiatric history: He had reported prior to 2019 having received outpatient psychotherapy and medication management through [facility] in [facility]. Medical history: Spina bifida, COPD, seasonal allergies Surgical history: None Drug and alcohol history: No illicit drug use, patient denies any history of inpatient or outpatient substance abuse treatment. He had endorsed chronic alcohol use beginning in adolescence with no history of reported alcohol-related withdrawals. Allergies: No known drug allergies Legal history: None Current medications: Abilify 5 mg daily, Prozac 20 mg daily, Trelegy 1 inhalation daily, Zyrtec 5 mg daily, montelukast 10 mg daily, omeprazole 20 mg daily ,albuterol inhaler Family psychiatric history: Alcoholism maternal and paternal side of the family. Psychosocial history: Patient had reported having been diagnosed with a learning disorder during his childhood. He had received a regular diploma and was raised by his biological parents in [place]. He had reported being chronically disabled by spina bifida and had been on disability for more than 30 years. 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 He lives alone in land inherited from his family in [place]. He has 1 older sister who he has occasional contact with. He has never been and has no children. His f ather greater than 20 years ago and his mother in 2016 both of cancer. He had reported no legal problems. He currently drives and is on full disability. He reports living independently. He had previously smoked cigarettes and quit in 2007. He reports he is a [employer] and goes to [employer] every Monday. Hospital Course Hospital Course During the hospitalization, the patient had routine laboratory studies which were within normal limits except for a few outliers.? Additionally, there was a general medical evaluation which was also within normal limits and revealed no new acute processes. ?At the time of discharge, lethality was denied and psychosis was not present. ? Mood and anxiety were well managed.? The patient endorsed a plan to avoid all drugs of abuse and follow up with the aftercare recommendations of the treatment team.? The patient was evaluated and deemed to be absent credible lethality and had achieved the maximum benefit from an inpatient hospitalization, and so was discharged. Patient was restarted on his abilify and prozac. He showed limited interest in receiving psychotherapy or help with his chronic alcohol use. Involuntary Hold Information 96 Hour Hold: 96 Hour Involuntary Admission: Yes 96 Hour Hold Ending Date: 04/18/24 96 Hour Hold Ending Time: 12:18 Mental Status Exam MSE Comments: Patient is a pleasant white male with fair hygiene and a normal gait with no evidence of any abnormal involuntary motor movements tics or tremors appreciated. He was alert and oriented x 3. His speech was slow in regards to rate , normal rhythm and volume. His mood was described as okay. His affect was slightly restricted. There was no evidence of any psychomotor agitation with no psychomotor retardation noted. His thought process was linear, logical,and goal-directed. His thought content showed no evidence of active homicidal or suicidal ideation today. His attention span appeared fair. His recent and remote memory were grossly intact. There was no evidence of any delusional thinking. He did not appear to be responding to internal stimuli. His insight appeared limited. His judgment was guarded at this time. His impulse control appeared guarded as well. Discharge Data Studies Completed and Pending: Laboratory Results WBC 9.38 10^3/uL (3.2 9-11.43) 04/12/24 11:16 RBC 4.48 10^6/uL (3.8 5-5.65) 04/12/24 11:16 Hgb 14.10 g/dL (11.27 -16.99) 04/12/24 11:16 Hct 43.5 % (37-53) 04/12/24 11:16 MCV 97.1 fl (82-101) 04/12/24 11:16 MCH 31.5 pg (27-33) 04/12/24 11:16 MCHC 32.4 g/dL (30-55) 04/12/24 11:16 RDW 13.4 % (12.1-15.1 ) 04/12/24 11:16 Plt Count 270 10^3/cmm (157 -399) 04/12/24 11:16 MPV 9.6 fL (7.4-10.4) 04/12/24 11:16 Neut % (Auto) 71.3 % 04/12/24 11:16 Lymph % (Auto) 12.5 % 04/12/24 11:16 [place] % (Auto) 14.2 % 04/12/24 11:16 Eos % (Auto) 1.2 % 04/12/24 11:16 Baso % (Auto) 0.4 % 04/12/24 11:16 Neut # (Auto) 6.69 10^3/uL (1.8 -7.7) 04/12/24 11:16 Lymph # (Auto) 1.2 10^3/uL (0.8- 4.8) 04/12/24 11:16 [place] # (Auto) 1.3 10^3/uL (0.2- 0.9) H 04/12/24 11:16 Eos # (Auto) 0.1 10^3/uL (0.0- 0.8) 04/12/24 11:16 Baso # (Auto) 0.0 10^3/uL (0.0- 0.1) 04/12/24 11:16 Nucleated RBC % (a uto) 0 % 04/12/24 11:16 Nucleated RBCs # 0.0 /100WBC 04/12/24 11:16 Sodium 136 mmol/L (136-1 45) 04/12/24 11:16 Potassium 3.7 mmol/L (3.5-5 .1) 04/12/24 11:16 Chloride 100 mmol/L (98-10 7) 04/12/24 11:16 Carbon Dioxide 23 mmol/L (22-29) 04/12/24 11:16 Anion Gap 16.7 (5-19) 04/12/24 11:16 BUN 13 mg/dL (8-23) 04/12/24 11:16 Creatinine 0.9 mg/dL (0.7-1. 2) 04/12/24 11:16 GFR Calculation 85.5 mL/min (90-1 30) L 04/12/24 11:16 Glucose 101 mg/dL (65-115 ) 04/12/24 11:16 Calculated Osmolal ity 282 mOsm/kg (285- 295) L 04/12/24 11:16 Calcium 9.0 mg/dL (8.5-10 .5) 04/12/24 11:16 Total Bilirubin 0.4 mg/dL (0.15-1 .2) 04/12/24 11:16 AST 29 U/L (0-40) 04/12/24 11:16 ALT 18 U/L (0-41) 04/12/24 11:16 Alkaline Phosphata se 79 U/L (40-130) 04/12/24 11:16 Total Protein 7.7 g/dL (6.6-8.7 ) 04/12/24 11:16 Albumin 4.0 g/dL (3.5-5.2 ) 04/12/24 11:16 Globulin 3.7 g/dL (1.3-4.6 ) 04/12/24 11:16 Salicylates 0.6 mg/dL (3-10) L 04/12/24 11:16 Urine Opiates Scre en Negative ng/mL (N egative) 04/12/24 11:08 Acetaminophen < 5.0 ug/mL (10-3 0) L 04/12/24 11:16 Ur Barbiturates Sc reen Negative ng/mL (N egative) 04/12/24 11:08 Ur Phencyclidine S crn Negative ng/mL (N egative) 04/12/24 11:08 Ur Amphetamines Sc reen Negative ng/mL (N egative) 04/12/24 11:08 U Benzodiazepines Scrn Negative ng/mL (N egative) 04/12/24 11:08 Urine Cocaine Scre en Negative ng/mL (N egative) 04/12/24 11:08 U Marijuana (THC) Screen Negative ng/mL (N egative) 04/12/24 11:08 Ethyl Alcohol < 10 mg/dL (0-10) 04/12/24 11:16 Vitals: Last Vital Signs Temp 98.3 F 04/15/24 16:04 Pulse 84 04/15/24 16:04 Resp 18 04/15/24 16:04 BP 140/67 04/15/24 16:04 Pulse Ox 96 04/15/24 16:04 O2 Del Method Room Air 04/15/24 15:59 Discharge Plan Discharge Patient Disposition: Home Condition: Stable Prescriptions: Continued fluoxetine 40 mg capsule 40 mg PO DAILY omeprazole 20 mg capsule,delayed release(DR/EC) 20 mg PO DAILY montelukast 10 mg tablet 10 mg PO DAILY albuterol sulfate 90 mcg/actuation HFA aerosol inhaler 2 puff INHALATION Q6H PRN (Reason: Shortness Of Breath Or Wheezing) aripiprazole 5 mg tablet 5 mg PO DAILY levocetirizine 5 mg tablet 5 mg PO QPM Trelegy Ellipta 100-62.5-25 mcg blister with device 1 inh INHALATION DAILY Discharge Orders: Discharge Order (Routine); Ordered 04/15/24 Ordered By: Fei Myers Referrals: [facility] [Other] - 04/19/24 8:30 am (Initial appointment with Alana Edwards) Discharge Diet: Usual diet Discharge Activity: Resume usual activity Patient Instructions: Alcohol Abuse, Depression (DC), Help Prevent Suicide (DC), Alcohol Use Disorder (DC), Opioid Safety, Pain Management Discharge Attestations NPU Time Spent in Discharge Care*: less than 30 min Specific Discharge Activities: Specific discharge activities: educating patient, discussing with piano case maker/social workers/dc planners and documenting/other paperwork Coding Level of Care Code Acute Code for Chg Fwd Diagnoses Depression, unspecified F32.A Suicidal ideation R45.851 Alcohol abuse F10.10
== END 2024-04-15 16:42 | disposition home or self-care (01) | DRG 881 ==
LOC: ER 13:07 → NP 13:43
PROVIDERS: Physician Assistant; Admitting Provider Psychiatry & Neurology Psychiatry; Emergency Provider Family Medicine; Visit Provider Psychiatry & Neurology Psychiatry
DX: F32.A Depression, unspecified (principal); R45.851 Suicidal ideations; F10.10 Alcohol abuse, uncomplicated; Z56.0 Unemployment, unspecified; Q05.9 Spina bifida, unspecified
CPT/HCPCS: 36415; 80053; 80306; 80307; 85025; 94640; 97150; 97165; 99285; J7626

== ENCOUNTER → 2024-05-30 08:32 | Outpatient (BNVA) | payer MEDICARE, MEDICAID, SELFPAY | PROVIDERS: Visit Provider Podiatrist Foot & Ankle Surgery | DX: L60.3 Nail dystrophy (principal) | CPT/HCPCS: 99203 ==

== ENCOUNTER → 2024-09-16 12:58 | Outpatient (BNVA) | payer MEDICARE, MEDICAID, SELFPAY | PROVIDERS: Visit Provider Podiatrist Foot & Ankle Surgery | DX: L60.3 Nail dystrophy (principal) | CPT/HCPCS: 99213 ==

== ENCOUNTER → 2025-05-14 09:04 | Outpatient (BNVA) | payer MEDICARE, MEDICAID, SELFPAY | PROVIDERS: Visit Provider Podiatrist Foot & Ankle Surgery | DX: L60.3 Nail dystrophy (principal); I73.9 Peripheral vascular disease, unspecified | CPT/HCPCS: 11721; 99213 ==

== ENCOUNTER → 2025-07-24 09:46 | Outpatient (BNVA) | payer MEDICARE, MEDICAID, SELFPAY | PROVIDERS: Visit Provider Podiatrist Foot & Ankle Surgery | DX: I73.9 Peripheral vascular disease, unspecified (principal); L60.3 Nail dystrophy | CPT/HCPCS: 11721; 99213 ==

== ENCOUNTER → 2025-09-24 09:33 | Outpatient (BNVA) | payer MEDICARE, MEDICAID, SELFPAY | PROVIDERS: Visit Provider Podiatrist Foot & Ankle Surgery | DX: L60.8 Other nail disorders (principal); L60.3 Nail dystrophy; I73.9 Peripheral vascular disease, unspecified; L84 Corns and callosities | CPT/HCPCS: 11056; 11721; 99213 ==